=== PATIENT | male | born 1950 | race Caucasian/White ===

== ENCOUNTER 2016-12-03 11:52 | Emergency (ER) | payer OTHER ==
--- NOTE | ~2016-12-03 | CR253 ---
[facility] A Service of [facility] & [facility] RADIOLOGY TEXT RESULTS PATIENT: MIKE WIN LOCATION: [facility] : 48 UNIT #: [id number] AGE: [address]: Lindsay Helm MD SEX: M ORDER DR: [id number] [facility] [address] [place], [place] [address] [id number] MR#: [id number] Acc #: [id number] NAME: MIKE WIN : 1950 SEX: M STUDY DATE/TIME: 12/03/2016 12:12 UNIT: [facility] ROOM: STUDY DESCRIPTION: CR Tibia and Fibula 2 Views Rt Attending Physician: Lindsay Helm M.D. Referring Physician: You Daniel M.D. Ordering Physician: Lindsay Helm M.D. Primary Care Physician: You Daniel M.D. MEDICAL IMAGING REPORT This report is preliminary unless electronic signature is present EXAM Right leg 12/03/2016 HISTORY 66-year-old male with right leg pain and swelling for 3 weeks. Possible infection in the midshaft right lower leg. COMPARISON None. FINDINGS 2 views of the right leg demonstrate no acute fracture or dislocation. Soft tissues are unremarkable. Vascular calcifications are noted. No radiopaque foreign bodies or soft tissue gas. IMPRESSION No acute bony abnormality. Soft tissues are unremarkable. No radiopaque foreign bodies or soft tissue gas. Vascular calcifications. Dictated by... John Odonnell M.D. THIS IS AN ELECTRONICALLY VERIFIED REPORT John Odonnell M.D. at 12/05/2016 7:45 AM [facility] TD: 12/04/2016 11:35 JOB #: [id number] MEDICAL IMAGING REPORT COPY
--- NOTE | ~2016-12-03 | CR127 ---
[facility] A Service of [facility] & [facility] RADIOLOGY TEXT RESULTS PATIENT: MIKE WIN LOCATION: [facility] : 48 UNIT #: [id number] AGE: [address]: Lindsay Helm MD SEX: M ORDER DR: [id number] [facility] [address] [place], [place] [address] [id number] MR#: [id number] Acc #: [id number] NAME: MIKE WIN : 1950 SEX: M STUDY DATE/TIME: 12/03/2016 12:15 UNIT: [facility] ROOM: STUDY DESCRIPTION: CR Foot Complete Min 3 View Rt Attending Physician: Lindsay Helm M.D. Referring Physician: You Daniel M.D. Ordering Physician: Lindsay Helm M.D. Primary Care Physician: You Daniel M.D. MEDICAL IMAGING REPORT This report is preliminary unless electronic signature is present EXAM Right foot 12/03/2016 HISTORY 66-year-old male with right foot pain and swelling for 3 weeks. COMPARISON None. FINDINGS 3 views of the right foot demonstrate no acute fracture or dislocation. There is mild soft tissue swelling of the fifth toe. No radiopaque foreign bodies. Vascular calcifications. No significant joint effusion. IMPRESSION Soft tissue swelling of the fifth toe. No evidence of acute fracture or dislocation. Dictated by... John Odonnell M.D. THIS IS AN ELECTRONICALLY VERIFIED REPORT John Odonnell M.D. at 12/05/2016 7:45 AM [facility] TD: 12/04/2016 11:36 JOB #: [id number] MEDICAL IMAGING REPORT COPY
[~2016-12-03 11:52] MED LIST: VICODIN 5/500 T1 TAB PO
[2016-12-03 13:49] LABS: BASOPHIL# 0.1 X10e3 (0-0.3); BASOPHIL% 0.7 % (0-2.5); EOSINOPHIL% 0.3 % (0.0-7.0); HEMATOCRIT 43.3 % (38.0-50.0); HEMOGLOBIN 14.4 gm/dL (13.0-16.0); LYMPHOCYTE# 1.3 X10e3 (1.0-3.5); LYMPHOCYTE% 14.4 % (17.0-45.0); MEAN CELL VOLUME 94.1 FL (83-96); MEAN CORPUSCULAR HEMOGLOBIN 31.2 PG (28-34); MEAN CORPUSCULAR HGB CONC 33.2 g/dL (30-36); MONOCYTE# 0.7 X10e3 (0-1.0); MONOCYTE% 7.8 % (3.0-12.0); NEUTROPHIL# 7.1 X10e3 (1.5-7.1); NEUTROPHIL% 76.8 % (40-75); PLATELET COUNT 168 X10e3 (140-420); RED CELL DISTRIBUTION WIDTH 15.5 % (11.0-15.5); WHITE BLOOD COUNT 9.2 X10e3 (4.0-10.5)
[2016-12-03 13:51] LABS: DIFF IND NO
[2016-12-03 14:14] LABS: BLOOD UREA NITROGEN 12 mg/dL (9-23); BUN/CREATININE RATIO 17.14; CALCIUM SERUM 8.8 mg/dL (8.4-10.2); CARBON DIOXIDE 26 mmol/L (22-31); CHLORIDE 106 mmol/L (100-111); CREATININE SERUM 0.7 mg/dL (0.6-1.4); GLOM FILT RATE Estimated ABOVE60 mL/min (>60); GLUCOSE FASTING 96 mg/dL (70-110); POTASSIUM 3.9 mmol/L (3.5-5.1); SODIUM 139 mmol/L (135-145)
== END 2016-12-03 15:03 | disposition home or self-care (01) ==
LOC: CED 11:52
PROVIDERS: Emergency Medicine
DX: L03.115 Cellulitis of right lower limb (principal)
CPT/HCPCS: 36415; 73590; 73630; 80048; 85025; 87070; 87205; 99284